=== PATIENT | female | born 1945 | race Caucasian/White ===

== ENCOUNTER → 2016-06-19 | Outpatient (CLI) | payer MEDICARE, OTHER ==
--- NOTE | 2016-06-19 12:28 | REPMRS ---
Patient History The patient states she has not had a clinical breast exam in over a year. Patient is postmenopausal and had first child at age 36. No known family history of cancer. Digital Woman Screen Mammo: June 19, 2016 - Exam #: [id number] Bilateral CC and MLO view(s) were taken. Technologist: Gi Hollis, Technologist Prior study comparison: January 17, 2015, digital woman screen mammo performed at [facility] to [facility]. January 27, 2013, digital woman screen mammo performed at [facility] to [facility]. February 19, 2011, bilateral bilat screen digital mammo performed at [facility]. FINDINGS: There are scattered fibroglandular densities. There has been no change in the appearance of the mammogram from the prior studies. There is a mild amount of scattered fibroglandular density which is fairly symmetric. There is no interval development of dominant mass, architectural distortion, or clustered microcalcification suggestive of malignancy. ASSESSMENT: BI-RADS/ACR category 1 mammogram. Negative. Recommendation Routine screening mammogram in 1 year (for women over age 40). This mammogram was interpreted with the aid of an FDA-approved computer-aided dectection system. Electronically Signed By: José Manuel Echevarria MD 06/19/16 [id number]
== END ==
LOC: M WHC 11:24
PROVIDERS: ATTEND Internal Medicine
DX: Z12.31 Encounter for screening mammogram for malignant neoplasm of breast (principal)

== ENCOUNTER → 2017-04-16 | Outpatient (CLI) | payer MEDICARE, OTHER ==
[2017-04-16 17:14] LABS: MEAN CORPUSCULAR HEMOGLOBIN 29.7 pg (27.0-33.0); MEAN CORPUSCULAR HGB CONC 32.6 g/dl (32.0-36.5); PLATELET COUNT, AUTOMATED 243 10^3/uL (150-450); RED CELL DISTRIBUTION WIDTH 12.4 % (11.5-14.5); WHITE BLOOD COUNT 7.4 10^3/uL (4.0-10.0)
[2017-04-16 18:07] LABS: ANION GAP 6 MEQ/L (8-16); BLOOD UREA NITROGEN 12 MG/DL (7-18); CALCIUM LEVEL 9.3 MG/DL (8.8-10.2); CARBON DIOXIDE LEVEL 32 MEQ/L (21-32); CHLORIDE LEVEL 106 MEQ/L (98-107); GLOMERULAR FILTRATION RATE > 60.0 (>45); GLUCOSE, FASTING 82 MG/DL (80-110); POTASSIUM SERUM 4.2 MEQ/L (3.5-5.1); SODIUM LEVEL 144 MEQ/L (136-145)
== END ==
LOC: M SMT 15:00
PROVIDERS: ATTEND Urology
DX: R31.29 Other microscopic hematuria (principal)

== ENCOUNTER → 2017-04-16 | Outpatient (REF) | payer MEDICARE, OTHER | LOC: M SMT 17:10 | PROVIDERS: ATTEND Urology | DX: R31.29 Other microscopic hematuria (principal) | CPT/HCPCS: 36415; 51798; 80048; 81001; 85027; 87086; 88108; G0463 ==

== ENCOUNTER → 2017-04-25 | Outpatient (CLI) | payer MEDICARE, OTHER ==
[~2017-04-25] MED LIST: ISOVUE-370 76% 100ML VIAL (Q9967) As Ordered ONE
--- NOTE | 2017-04-25 14:23 | REP ---
CT of the abdomen pelvis for microscopic hematuria: Is performed without and with IV contrast. After IV contrast, immediate and delayed images are performed. 3-D reformats also performed. The visualized lung bonilla are unremarkable. There are multiple hepatic cysts, predominately in the right lobe the largest in the dome of the liver measuring 3 cm. The hepatic parenchyma is otherwise homogeneous and unremarkable. The gallbladder, pancreas and spleen are unremarkable. The adrenals are unremarkable. There is no hydronephrosis. No renal or ureteral calculi. There are no solid or cystic renal masses. There are no bladder calculi or masses. The aorta is unremarkable. There is no bowel distension. Mesentery is unremarkable. Pelvis: The appendix is unremarkable. The uterus and adnexa are unremarkable. There is no ascites or adenopathy. Impression: Essentially negative CT of the abdomen and pelvis. There are no renal or bladder calculi, polyps, cysts or masses. There is no hydronephrosis. Signed by Kain Caba MD 04/25/2017 02:14 P
== END ==
LOC: M RAD 12:42
PROVIDERS: ATTEND Urology
DX: R31.29 Other microscopic hematuria (principal)
CPT/HCPCS: 74178; Q9967

== ENCOUNTER → 2017-06-23 | Outpatient (CLI) | payer MEDICARE, OTHER | LOC: M WHC 09:30 | DX: Z12.31 Encounter for screening mammogram for malignant neoplasm of breast (principal); M85.80 Other specified disorders of bone density and structure, unspecified site | CPT/HCPCS: 77067 ==

== ENCOUNTER → 2017-08-27 | Outpatient (CLI) | payer MEDICARE, OTHER | LOC: M RAD 10:10 | DX: M66.371 Spontaneous rupture of flexor tendons, right ankle and foot (principal) | CPT/HCPCS: 73721 ==

== ENCOUNTER 2017-10-24 07:24 | Day surgery (SDC) | payer MEDICARE, OTHER ==
[2017-10-24] MEDS ORDERED: LIDOCAINE 1% MDV 20ML VIAL SQ (07:30)
[2017-10-24] MEDS: LR 1,000 ML IV (08:25)
[2017-10-24] MEDS ORDERED: LIDOCAINE 2% INJ 100 MG/5 ML SDV (FOR ANES.) As Ordered (09:11)
[2017-10-24] MEDS ORDERED: ONDANSETRON 4MG/2ML VIAL (J2405) As Ordered (09:11)
[2017-10-24] MEDS ORDERED: MIDAZOLAM INJ 2 MG/2 ML VIAL (J2250) As Ordered (09:11)
[2017-10-24] MEDS ORDERED: ePHEDrine SULFATE 25 MG/5 ML(5MG/ML) SYRINGE As Ordered (09:11)
[2017-10-24] MEDS ORDERED: METOCLOPRAMIDE INJ 10MG/2ML VIAL (J2765) As Ordered (09:11)
[2017-10-24] MEDS ORDERED: fentaNYL 100 MCG/2 ML INJECTION (J3010) As Ordered ×2 (09:11→09:43)
[2017-10-24] MEDS ORDERED: PROPOFOL 200 MG/20 ML VIAL As Ordered ×2 (09:11→10:32)
[2017-10-24] MEDS: BUPIVACAINE HCL 0.5% 30 ML VIAL As Ordered (09:14)
[2017-10-24] MEDS: LIDOCAINE 2% MDV 20 ML VIAL As Ordered (09:14)
[2017-10-24] MEDS ORDERED: PHENYLephrine HCL 500 MCG/5 ML (100MCG/ML) SYRINGE (J2370) As Ordered (09:36)
[2017-10-24] MEDS: dexameTHASONE 4 MG/ML 1ML VIAL (J1100) As Ordered (09:42)
[2017-10-24] MEDS: NEOSPORIN GU IRRIG 20 ML VIAL As Ordered (09:42)
[2017-10-24] MEDS: BACITRACIN PWD 50,000 UNITS VIAL As Ordered (09:44)
[2017-10-24] MEDS ORDERED: ONDANSETRON 4MG/2ML VIAL (J2405) IV (11:15)
[2017-10-24] MEDS ORDERED: LR 1,000 ML IV (11:15)
[2017-10-24] MEDS: fentaNYL 100 MCG/2 ML INJECTION (J3010) IV ×2 (11:22)
[2017-10-24] MEDS ORDERED: PERCOCET 5MG/325MG TAB As Ordered (11:31)
[2017-10-24] MEDS: PERCOCET 5MG/325MG TAB PO (11:40)
== END 2017-10-24 13:36 | disposition home or self-care (01) ==
LOC: M SDC 07:24
DX: M76.821 Posterior tibial tendinitis, right leg (principal); I10 Essential (primary) hypertension; E78.4 Other hyperlipidemia; E03.9 Hypothyroidism, unspecified; M41.9 Scoliosis, unspecified; Z79.82 Long term (current) use of aspirin; Z79.899 Other long term (current) drug therapy; Z88.8 Allergy status to other drugs, medicaments and biological substances; F41.9 Anxiety disorder, unspecified
CPT/HCPCS: 28220

== ENCOUNTER → 2018-04-23 | Outpatient (REF) | payer MEDICARE, OTHER ==
[~2018-04-23] MED LIST changes: +ASPI81TA85 PO; +CALC600T31 PO; +D 50CAP PO; +ESCI10TA2 PO; -ISOVUE-370 76% 100ML VIAL (Q9967) As Ordered ONE; +MURO5OIN OS; +SYNT112T2 PO
[2018-04-23 17:56] LABS: BACTERIA, URINE AUTO NEGATIVE (NEGATIVE); MUCUS, URINE SMALL (NEGATIVE); RBC, URINE AUTO 12 /HPF (0-3); SQUAMOUS EPITHELIAL CELL UR AU 1 /HPF (0-6); WBC, URINE AUTO 2 /HPF (0-3)
== END ==
LOC: M SMT 17:00
PROVIDERS: ATTEND Specialist
DX: R31.29 Other microscopic hematuria (principal)
CPT/HCPCS: 81015; 87086; G0463

== ENCOUNTER → 2018-05-19 | Outpatient (REF) | payer MEDICARE, OTHER ==
[2018-05-19 14:20] LABS: INR 0.99; PROTHROMBIN TIME 13.1 SECONDS (12.1-14.4)
[2018-05-19 16:01] LABS: BACTERIA, URINE AUTO NEGATIVE (NEGATIVE); MUCUS, URINE SMALL (NEGATIVE); RBC, URINE AUTO 115 /HPF (0-3); SQUAMOUS EPITHELIAL CELL UR AU 1 /HPF (0-6); WBC, URINE AUTO 4 /HPF (0-3)
== END ==
LOC: M LAB REF 12:59
PROVIDERS: ATTEND Internal Medicine Nephrology
DX: R31.9 Hematuria, unspecified (principal)

== ENCOUNTER → 2019-07-20 | Outpatient (CLI) | payer MEDICARE, OTHER ==
--- NOTE | 2019-07-20 15:58 | REPMRS ---
Patient History The patient states she has not had a clinical breast exam in over a year. Family history of breast cancer at age 50 or over in paternal grandmother. Digital Woman Screen Mammo: July 20, 2019 - Exam #: [id number] Bilateral CC and MLO view(s) were taken. Technologist: RT Nicolas Prior study comparison: June 23, 2017, digital woman screen mammo performed at [facility]. June 19, 2016, digital woman screen mammo performed at [facility]. January 17, 2015, digital woman screen mammo performed at [facility]. FINDINGS: There are scattered fibroglandular densities. There is a moderate amount of residual fibroglandular tissue which is fairly symmetric. There is no interval development of dominant mass, architectural distortion, or grouped microcalcification typical of malignancy. There has been no change in the appearance of the mammogram from the prior studies. 3-D tomosynthesis shows no additional findings. Assessment: BI-RADS/ACR category 1 mammogram. Negative Mammogram. Recommendation Routine screening mammogram of both breasts in 1 year (for women over age 40). This patient's Lifetime Breast Cancer RIsk is estimated at 8.8 %. This mammogram was interpreted with the aid of an FDA-approved computer-aided dectection system. Electronically Signed By: José Manuel Echevarria MD 07/20/19 [id number]
--- NOTE | 2019-07-23 10:25 | DEXA ---
AP SPINE L1 - L4 1.258 0.5 2.2 LT FEMUR TOTAL 0.738 -2.1 -0.6 LT NECK 0.771 -1.9 -0.2 RT FEMUR TOTAL 0.785 -1.8 -0.2 RT NECK 0.777 -1.9 -0.1 TOTAL BODY TOTAL OTHER COMMENTS: Normal bone densitometry of the spine. There is low bone density of the hips. Lumbar scoliosis. The density of the spine has decreased 7.9% since the initial exam on 05/24/1998. The spine density has decreased 4.3% since the most recent exam on 06/23/2017. The density of the left hip has decreased 25% since the initial exam on 05/24/1998. The density of the left hip has decreased 0.3% since the most recent exam on 06/23/2017. The density of the right hip has decreased 12.9% since the initial exam on 09/17/2005. The density of the right hip has decreased 7.0% since the most recent exam on 06/23/2017. FOLLOW-UP: Recommendation for the next bone density exam: 2 years. GABINO
== END ==
LOC: M WHC 12:56
PROVIDERS: ATTEND Internal Medicine
DX: Z12.31 Encounter for screening mammogram for malignant neoplasm of breast (principal); M85.80 Other specified disorders of bone density and structure, unspecified site

== ENCOUNTER → 2021-08-08 | Outpatient (CLI) | payer MEDICARE, OTHER ==
[~2021-08-08] MED LIST changes: -ASPI81TA85 PO; +ASPI81TA86 PO; +ESCI10TA16 PO; -ESCI10TA2 PO
== END ==
LOC: M WHC 13:09
PROVIDERS: ATTEND Internal Medicine
DX: Z12.31 Encounter for screening mammogram for malignant neoplasm of breast (principal); Z13.820 Encounter for screening for osteoporosis; M85.851 Other specified disorders of bone density and structure, right thigh; M85.852 Other specified disorders of bone density and structure, left thigh

== ENCOUNTER → 2022-09-11 | Outpatient (CLI) | payer MEDICARE, OTHER | LOC: M WUC 14:13 | PROVIDERS: ATTEND Internal Medicine | DX: M79.641 Pain in right hand (principal); M79.89 Other specified soft tissue disorders; M19.041 Primary osteoarthritis, right hand; M85.841 Other specified disorders of bone density and structure, right hand ==

== ENCOUNTER → 2022-10-04 | Outpatient (REF) | payer MEDICARE, OTHER | LOC: M LAB REF 16:28 | PROVIDERS: ATTEND Internal Medicine | DX: M19.90 Unspecified osteoarthritis, unspecified site (principal) ==

== ENCOUNTER → 2022-10-15 | Outpatient (REF) | payer MEDICARE, OTHER | LOC: M LAB REF 12:27 | PROVIDERS: ATTEND Internal Medicine | DX: M19.90 Unspecified osteoarthritis, unspecified site (principal) ==

== ENCOUNTER → 2022-10-25 | Outpatient (REF) | payer MEDICARE, OTHER | LOC: M LAB REF 13:53 | PROVIDERS: ATTEND Internal Medicine | DX: R53.83 Other fatigue (principal); M19.90 Unspecified osteoarthritis, unspecified site ==

== ENCOUNTER → 2022-11-06 | Outpatient (CLI) | payer MEDICARE, OTHER | LOC: M WUC 12:07 | PROVIDERS: ATTEND Internal Medicine | DX: R06.00 Dyspnea, unspecified (principal); M25.50 Pain in unspecified joint ==

== ENCOUNTER → 2024-01-28 | Outpatient (CLI) | payer MEDICARE, OTHER | LOC: M WHC 10:46 | PROVIDERS: ATTEND Internal Medicine | DX: Z12.31 Encounter for screening mammogram for malignant neoplasm of breast (principal); Z13.820 Encounter for screening for osteoporosis; M85.851 Other specified disorders of bone density and structure, right thigh; M85.852 Other specified disorders of bone density and structure, left thigh ==

== ENCOUNTER → 2024-03-02 | Outpatient (REF) | payer MEDICARE, OTHER | LOC: M LAB REF 13:32 | PROVIDERS: ATTEND Internal Medicine | DX: M19.90 Unspecified osteoarthritis, unspecified site (principal) ==